=== PATIENT | male | born 1940 | race Asian ===

== ENCOUNTER 2024-09-03 15:58 | Inpatient (IN) | payer MEDICARE, OTHER ==
[~2024-09-03] VITALS: Ht 165.1 cm; Wt 39.9 kg
[2024-09-03] MEDS ORDERED: ATOR20TA PO (17:08)
[2024-09-03] MEDS ORDERED: CARV12.52 PO (17:08)
[2024-09-03] MEDS ORDERED: TAMS-3 PO (17:08)
[2024-09-03] MEDS ORDERED: ASPI81TA31 PO (17:08)
[2024-09-03] MEDS ORDERED: DIGO250T PO (17:08)
[2024-09-03] MEDS: CEFTRIAXONE 1 G in IV DEXTROSE 5% 50 ML IV ONE (17:15)
[2024-09-03 17:32] LABS: BASOPHILS % (AUTO) 0.3 % (0.0-2.0); EOSINOPHILS # (AUTO) 0.1 K/uL (0.0-0.7); EOSINOPHILS % (AUTO) 0.8 % (0.0-7.0); HEMATOCRIT 39.1 % (31.2-41.9); HEMOGLOBIN 13.1 g/dL (10.9-14.3); LYMPHOCYTES # (AUTO) 0.9 K/uL (0.8-4.8); LYMPHOCYTES % (AUTO) 7.4 % (20.5-51.5); MEAN CORPUSCULAR HEMOGLOBIN 30.7 uug (24.7-32.8); MEAN CORPUSCULAR HGB CONC 34 g/dL (32.3-35.6); MEAN CORPUSCULAR VOLUME 91.2 fL (75.5-95.3); MONOCYTES # (AUTO) 0.8 K/uL (0.1-1.30); NEUTROPHILS % (AUTO) 84.5 % (38.5-71.5); PLATELET COUNT (AUTO) 277 K/uL (179-408); RED BLOOD CELL COUNT(AUTO) 4.28 MIL/uL (3.63-4.92); RED CELL DISTRIBUTION WIDTH 13.5 % (12.3-17.7); WHITE BLOOD COUNT (AUTO) 11.8 K/uL (3.8-11.8)
[2024-09-03 17:41] LABS: CARBON DIOXIDE 32 mmol/L (21-32); CHLORIDE 91 mmol/L (98-107); CREATININE 0.6 mg/dL (0.6-1.3); GLUCOSE 113 mg/dL (74-106); POTASSIUM 3.8 mmol/L (3.5-5.1); SODIUM SERUM 129 mmol/L (136-145); UREA NITROGEN, BLOOD 11 mg/dL (7-18)
[2024-09-03 17:45] LABS: DIFFERENTIAL COMMENT 1
[2024-09-03 17:54] LABS: ALANINE AMINOTRANSFERASE 295 U/L (14-59); ALBUMIN 2.3 g/dL (3.4-5.0); ALKALINE PHOSPHATASE 215 U/L (50-136); ASPARTATE AMINOTRANSFERASE 171 U/L (15-37); BILIRUBIN,DIRECT 0.5 mg/dL (0.0-0.2); NT-PRO BNP 1754 pg/mL (0-125); TOTAL PROTEIN, SERUM 8.3 g/dL (6.4-8.2)
[2024-09-03 18:02] LABS: LACTIC ACID 2.1 mmol/L (0.4-2.0)
[2024-09-03] MEDS: IV NORMAL SALINE 1000 ML BAG IV ONE ×2 (18:04→20:20)
[2024-09-03] MEDS ORDERED: CEFTRIAXONE /D5W 50ML IVPB **ER PYXIS IV ONE (18:05)
[2024-09-03 18:20] LABS: *BILIRUBIN,URIN NEGATIVE (NEGATIVE); *BLOOD, URINE 2+ (NEGATIVE); *CLARITY,URINE CLEAR (CLEAR); *COLOR,URINE YELLOW (YELLOW); *KETONES,URINE NEGATIVE (NEGATIVE); LEUKOCYTE ESTERASE ,URINE 3+ (NEGATIVE); NITRITE, URINE POSITIVE (NEGATIVE); PH,URINE 7.5 (5.0-8.0); UGLUCOSE NEGATIVE (NEGATIVE)
[2024-09-03 18:26] LABS: *PROTEIN,URINE 3+ (NEGATIVE)
[2024-09-03 18:42] LABS: BACTERIA,URINE MANY /HPF (NONE SEEN); RBC,URINE 20-50 /HPF (0-3); SQUAMOUS EPITHELIAL CELL,UR FEW /HPF (NONE SEEN); WBC,URINE TNTC /HPF (0-3)
[2024-09-03] MEDS ORDERED: REMEDY ESSENTIAL ZINC PASTE 113 GM TP PRN (22:00)
[2024-09-03] MEDS ORDERED: ONDANSETRON 4 MG/2 ML VIAL IV PRN (22:00)
[2024-09-03] MEDS ORDERED: ACETAMINOPHEN 325 MG TABLET PO PRN (22:00)
[2024-09-03] MEDS ORDERED: MAGNESIUM HYDROXIDE 30 ML LIQUID UDC PO PRN (22:00)
[2024-09-04 01:29] VITALS: BP 113/64; TEMP 98; O2SAT 98
[2024-09-04] MEDS: IV NS 1000 ML 1,000 ML IV PRN (03:15)
[2024-09-04 05:17] VITALS: BP 124/62; TEMP 97.7; O2SAT 98
[2024-09-04 07:02] LABS: BASOPHILS % (AUTO) 0.3 % (0.0-2.0); EOSINOPHILS # (AUTO) 0.1 K/uL (0.0-0.7); EOSINOPHILS % (AUTO) 1.2 % (0.0-7.0); HEMATOCRIT 35.1 % (36.7-47.1); HEMOGLOBIN 12.1 g/dL (12.5-16.3); LYMPHOCYTES % (AUTO) 10.2 % (20.5-51.5); MEAN CORPUSCULAR HEMOGLOBIN 31.5 uug (23.8-33.4); MEAN CORPUSCULAR HGB CONC 34 g/dL (32.5-36.3); MEAN CORPUSCULAR VOLUME 91.6 fL (73.0-96.2); MONOCYTES # (AUTO) 0.7 K/uL (0.1-1.30); MONOCYTES % (AUTO) 7.4 % (0.0-11.0); NEUTROPHILS # (AUTO) 7.6 K/uL (1.8-8.9); NEUTROPHILS % (AUTO) 80.9 % (38.5-71.5); PLATELET COUNT (AUTO) 237 K/uL (152-348); RED BLOOD CELL COUNT(AUTO) 3.83 MIL/uL (4.06-5.63); WHITE BLOOD COUNT (AUTO) 9.5 K/uL (3.6-10.2)
[2024-09-04 07:12] LABS: DIFFERENTIAL COMMENT 1
[2024-09-04 07:22] LABS: ALANINE AMINOTRANSFERASE 221 U/L (16-63); ALBUMIN 1.9 g/dL (3.4-5.0); ALKALINE PHOSPHATASE 165 U/L (50-136); ASPARTATE AMINOTRANSFERASE 126 U/L (15-37); BILIRUBIN,TOTAL 0.9 mg/dL (0.2-1.0); CALCIUM 8.1 mg/dL (8.5-10.1); CARBON DIOXIDE 27 mmol/L (21-32); CHLORIDE 101 mmol/L (98-107); CREATININE 0.5 mg/dL (0.6-1.3); GLUCOSE 81 mg/dL (74-106); PHOSPHOROUS 2.5 mg/dL (2.5-4.9); POTASSIUM 3.4 mmol/L (3.5-5.1); SODIUM SERUM 136 mmol/L (136-145); TOTAL PROTEIN, SERUM 6.5 g/dL (6.4-8.2); UREA NITROGEN, BLOOD 7 mg/dL (7-18)
[2024-09-04 07:27] LABS: AMMONIA < 10 umol/L (11-32)
[2024-09-04 07:40] VITALS: BP 131/63; TEMP 98.2; O2SAT 97
[2024-09-04] MEDS ORDERED: DIGOXIN 250 MCG TABLET PO SCH (09:00)
[2024-09-04 10:53] VITALS: BP 128/59; TEMP 97.6; O2SAT 98
[2024-09-04] MEDS: TAMSULOSIN HCL 0.4 MG CAP.SR.24H PO SCH (10:53)
[2024-09-04] MEDS: DIGOXIN 250 MCG TABLET PO SCH (11:03)
[2024-09-04] MEDS: POTASSIUM CHLORIDE 50 ML IV SCH (11:03)
[2024-09-04 14:21] LABS: THYROID STIMULATING HORMONE 2.377 mIU/mL (0.358-3.740)
[2024-09-04 15:02] VITALS: BP 133/55; TEMP 97.6; O2SAT 96
[2024-09-04] MEDS ORDERED: SWABABLE VALVE TRANSFER SET EA MC ONE (15:58)
[2024-09-04] MEDS ORDERED: IOHEXOL 350 100 ML INFUS..BTL ONE (15:58)
[2024-09-04] MEDS ORDERED: IV NORMAL SALINE 250 ML IV ONE (15:58)
[2024-09-04] MEDS: ASPIRIN 81 MG TAB.CHEW PO SCH (16:49)
[2024-09-04] MEDS: CEFTRIAXONE 1 G in IV DEXTROSE 5% 50 ML IV SCH (17:13)
[2024-09-04 19:00] VITALS: BP 110/60; TEMP 99; O2SAT 96
[2024-09-05] VITALS: BP 130/63; TEMP 98.1; O2SAT 97
[2024-09-05 04:00] VITALS: BP 116/59; TEMP 97.5; O2SAT 94
[2024-09-05 06:54] LABS: BASOPHILS % (AUTO) 0.4 % (0.0-2.0); EOSINOPHILS # (AUTO) 0.1 K/uL (0.0-0.7); EOSINOPHILS % (AUTO) 1.6 % (0.0-7.0); HEMATOCRIT 34.3 % (36.7-47.1); HEMOGLOBIN 11.6 g/dL (12.5-16.3); LYMPHOCYTES % (AUTO) 12.9 % (20.5-51.5); MEAN CORPUSCULAR HEMOGLOBIN 30.9 uug (23.8-33.4); MEAN CORPUSCULAR HGB CONC 34 g/dL (32.5-36.3); MEAN CORPUSCULAR VOLUME 91.1 fL (73.0-96.2); MONOCYTES # (AUTO) 0.7 K/uL (0.1-1.30); MONOCYTES % (AUTO) 8.5 % (0.0-11.0); NEUTROPHILS # (AUTO) 6.1 K/uL (1.8-8.9); NEUTROPHILS % (AUTO) 76.6 % (38.5-71.5); PLATELET COUNT (AUTO) 271 K/uL (152-348); RED BLOOD CELL COUNT(AUTO) 3.76 MIL/uL (4.06-5.63); RED CELL DISTRIBUTION WIDTH 13.5 % (12.1-16.2); WHITE BLOOD COUNT (AUTO) 7.9 K/uL (3.6-10.2)
[2024-09-05 07:14] LABS: ALANINE AMINOTRANSFERASE 189 U/L (16-63); ALBUMIN 1.8 g/dL (3.4-5.0); ALKALINE PHOSPHATASE 141 U/L (50-136); ASPARTATE AMINOTRANSFERASE 104 U/L (15-37); BILIRUBIN,DIRECT 0.4 mg/dL (0.0-0.2); BILIRUBIN,TOTAL 0.7 mg/dL (0.2-1.0); CALCIUM 7.8 mg/dL (8.5-10.1); CARBON DIOXIDE 27 mmol/L (21-32); CHLORIDE 105 mmol/L (98-107); CREATINE KINASE, TOTAL 14 U/L (39-308); CREATININE 0.5 mg/dL (0.6-1.3); GLUCOSE 92 mg/dL (74-106); MAGNESIUM 1.9 mg/dL (1.8-2.4); PHOSPHOROUS 2.5 mg/dL (2.5-4.9); POTASSIUM 3.5 mmol/L (3.5-5.1); SODIUM SERUM 139 mmol/L (136-145); TOTAL PROTEIN, SERUM 6.2 g/dL (6.4-8.2); UREA NITROGEN, BLOOD 7 mg/dL (7-18)
[2024-09-05 07:25] LABS: DIFFERENTIAL COMMENT 1
[2024-09-05 07:38] VITALS: BP 121/76; TEMP 98.2; O2SAT 96
[2024-09-05] MEDS: TAMSULOSIN HCL 0.4 MG CAP.SR.24H PO SCH (08:09)
[2024-09-05 11:17] VITALS: BP 108/62; TEMP 98.4; O2SAT 98
[2024-09-06 04:07] LABS: HEPATITIS B SURFACE AB, QUAL Reactive (.); HEPATITIS B SURFACE AG Negative (Negative); HEPATITIS C VIRUS ANTIBODY Non Reactive (Non Reactive)
[2024-09-08] MEDS ORDERED: LEVO500T90 PO (22:25)
== END 2024-09-05 15:00 | disposition home health service (06) | DRG 64 ==
LOC: EDSEX 16:15 → ER 16:15 → TELE3 22:15
PROVIDERS: ADMIT Nurse Practitioner Acute Care; ATTEND Internal Medicine
PROC: 05HC33Z Insertion of Infusion Device into Left Basilic Vein, Percutaneous Approach (ICD-10-PCS; principal; 2024-09-04)
DX: I61.9 Nontraumatic intracerebral hemorrhage, unspecified (principal); G93.41 Metabolic encephalopathy; I50.32 Chronic diastolic (congestive) heart failure; I69.354 Hemiplegia and hemiparesis following cerebral infarction affecting left non-dominant side; N39.0 Urinary tract infection, site not specified; R13.10 Dysphagia, unspecified; I11.0 Hypertensive heart disease with heart failure; E78.5 Hyperlipidemia, unspecified; R74.01 Elevation of levels of liver transaminase levels; T44.6X5A Adverse effect of alpha-adrenoreceptor antagonists, initial encounter; Y92.009 Unspecified place in unspecified non-institutional (private) residence as the place of occurrence of the external cause; N40.1 Benign prostatic hyperplasia with lower urinary tract symptoms; R33.8 Other retention of urine; E86.0 Dehydration; Z66 Do not resuscitate
CPT/HCPCS: 36415; 70450; 70496; 71045; 80164; 83605; 83735; 83921; 84100; 84443; 84484; 85025; 85730; 86706; 86803; 87040; 87077; 87086; 87340; A4606; A4663; G0378; J0696; J3480; J7040; Q9967

== ENCOUNTER 2024-10-18 21:05 | Inpatient (IN) | payer MEDICARE, OTHER ==
[~2024-10-18] VITALS: Ht 165.1 cm; Wt 39.9 kg
[~2024-10-18 21:05] MED LIST: ASPI81TA31 PO; CARV12.52 PO; DIGO250T PO; LEVO500T90 PO; TAMS-3 PO
[2024-10-18] MEDS ORDERED: ONDANSETRON 4 MG/2 ML VIAL IV ONE (21:30)
[2024-10-18] MEDS ORDERED: MORPHINE SULFATE 2 MG/1 ML DISP.SYRIN IV ONE (21:30)
[2024-10-18 22:21] LABS: BASOPHILS % (AUTO) 0.4 % (0.0-2.0); DIFFERENTIAL COMMENT 0; EOSINOPHILS % (AUTO) 0.4 % (0.0-7.0); HEMATOCRIT 44.4 % (36.7-47.1); LYMPHOCYTES # (AUTO) 1.1 K/uL (0.8-4.8); LYMPHOCYTES % (AUTO) 9.8 % (20.5-51.5); MEAN CORPUSCULAR HEMOGLOBIN 31.7 uug (23.8-33.4); MEAN CORPUSCULAR HGB CONC 34 g/dL (32.5-36.3); MEAN CORPUSCULAR VOLUME 93.6 fL (73.0-96.2); MONOCYTES # (AUTO) 0.6 K/uL (0.1-1.30); MONOCYTES % (AUTO) 5.1 % (0.0-11.0); NEUTROPHILS # (AUTO) 9.3 K/uL (1.8-8.9); NEUTROPHILS % (AUTO) 84.3 % (38.5-71.5); PLATELET COUNT (AUTO) 172 K/uL (152-348); RED BLOOD CELL COUNT(AUTO) 4.74 MIL/uL (4.06-5.63); RED CELL DISTRIBUTION WIDTH 15.7 % (12.1-16.2)
[2024-10-18 22:28] LABS: CALCIUM 9.3 mg/dL (8.5-10.1); CARBON DIOXIDE 27 mmol/L (21-32); CHLORIDE 103 mmol/L (98-107); CREATININE 0.8 mg/dL (0.6-1.3); GLUCOSE 98 mg/dL (74-106); POTASSIUM 4.6 mmol/L (3.5-5.1); SODIUM SERUM 140 mmol/L (136-145); UREA NITROGEN, BLOOD 13 mg/dL (7-18)
[2024-10-18 22:35] LABS: ALANINE AMINOTRANSFERASE 298 U/L (16-63); ALBUMIN 3.7 g/dL (3.4-5.0); ALKALINE PHOSPHATASE 124 U/L (50-136); ASPARTATE AMINOTRANSFERASE 538 U/L (15-37); BILIRUBIN,DIRECT 1.3 mg/dL (0.0-0.2); BILIRUBIN,TOTAL 1.9 mg/dL (0.2-1.0)
[2024-10-18 22:37] LABS: LIPASE > 375 U/L (16-77)
[2024-10-18] MEDS: ONDANSETRON ODT 4 MG TAB.RAPDIS SL ONE (22:52)
[2024-10-18] MEDS: MORPHINE SULFATE 2 MG/1 ML DISP.SYRIN IM ONE (22:52)
[2024-10-18] MEDS ORDERED: ROSU5TAB PO (23:11)
[2024-10-18] MEDS ORDERED: CHOL2000 PO (23:11)
[2024-10-18] MEDS ORDERED: ALFU10TA10 PO (23:11)
[2024-10-18] MEDS ORDERED: DUTA0.5C37 PO (23:11)
[2024-10-18] MEDS ORDERED: CARV25TA2 PO (23:11)
[2024-10-19] MEDS: IV NORMAL SALINE 500 ML BAG IV ONE (01:03)
[2024-10-19] MEDS ORDERED: ONDANSETRON 4 MG/2 ML VIAL IV PRN (03:15)
[2024-10-19] MEDS ORDERED: ACETAMINOPHEN 650 MG SUPP.RECT RC PRN (03:15)
[2024-10-19] MEDS ORDERED: MAGNESIUM HYDROXIDE 30 ML LIQUID UDC PO PRN (03:15)
[2024-10-19] MEDS ORDERED: MORPHINE SULFATE 2 MG/1 ML DISP.SYRIN IV PRN (03:15)
[2024-10-19 04:50] VITALS: BP 119/54; TEMP 98.1; O2SAT 96
[2024-10-19] MEDS: IV LACTATED RINGERS SOLUTION 1,000 ML IV SCH (05:16)
[2024-10-19 06:49] LABS: BASOPHILS % (AUTO) 0.1 % (0.0-2.0); HEMATOCRIT 37.6 % (36.7-47.1); HEMOGLOBIN 12.9 g/dL (12.5-16.3); LYMPHOCYTES # (AUTO) 1.5 K/uL (0.8-4.8); LYMPHOCYTES % (AUTO) 12.6 % (20.5-51.5); MEAN CORPUSCULAR HEMOGLOBIN 31.4 uug (23.8-33.4); MEAN CORPUSCULAR HGB CONC 34 g/dL (32.5-36.3); MEAN CORPUSCULAR VOLUME 91.6 fL (73.0-96.2); MONOCYTES # (AUTO) 0.5 K/uL (0.1-1.30); MONOCYTES % (AUTO) 4.5 % (0.0-11.0); NEUTROPHILS # (AUTO) 9.8 K/uL (1.8-8.9); NEUTROPHILS % (AUTO) 82.8 % (38.5-71.5); PLATELET COUNT (AUTO) 156 K/uL (152-348); RED CELL DISTRIBUTION WIDTH 15.5 % (12.1-16.2); WHITE BLOOD COUNT (AUTO) 11.8 K/uL (3.6-10.2)
[2024-10-19 07:02] LABS: DIFFERENTIAL COMMENT 1
[2024-10-19 07:08] LABS: ALANINE AMINOTRANSFERASE 296 U/L (16-63); ALBUMIN 2.9 g/dL (3.4-5.0); ALKALINE PHOSPHATASE 90 U/L (50-136); ASPARTATE AMINOTRANSFERASE 290 U/L (15-37); BILIRUBIN,TOTAL 1.2 mg/dL (0.2-1.0); CALCIUM 8.7 mg/dL (8.5-10.1); CARBON DIOXIDE 28 mmol/L (21-32); CHLORIDE 106 mmol/L (98-107); CREATININE 0.8 mg/dL (0.6-1.3); GLUCOSE 130 mg/dL (74-106); MAGNESIUM 1.8 mg/dL (1.8-2.4); PHOSPHOROUS 3.3 mg/dL (2.5-4.9); POTASSIUM 4.4 mmol/L (3.5-5.1); SODIUM SERUM 141 mmol/L (136-145); TOTAL PROTEIN, SERUM 7.2 g/dL (6.4-8.2); UREA NITROGEN, BLOOD 16 mg/dL (7-18)
[2024-10-19 07:14] LABS: LIPASE > 375 U/L (16-77)
[2024-10-19] MEDS: PANTOPRAZOLE SODIUM 40 MG VIAL IV SCH (09:35)
[2024-10-19 10:29] LABS: *BILIRUBIN,URIN 1+ (NEGATIVE); *BLOOD, URINE NEGATIVE (NEGATIVE); *CLARITY,URINE CLEAR (CLEAR); *COLOR,URINE YELLOW (YELLOW); *KETONES,URINE TRACE (NEGATIVE); *PROTEIN,URINE NEGATIVE (NEGATIVE); LEUKOCYTE ESTERASE ,URINE NEGATIVE (NEGATIVE); NITRITE, URINE NEGATIVE (NEGATIVE); PH,URINE 5.5 (5.0-8.0); UGLUCOSE NEGATIVE (NEGATIVE)
[2024-10-19 10:50] LABS: BACTERIA,URINE FEW /HPF (NONE SEEN); SQUAMOUS EPITHELIAL CELL,UR FEW /HPF (NONE SEEN); WBC,URINE 0-3 /HPF (0-3)
[2024-10-19] MEDS ORDERED: Medication Not On Formulary EA (Cholecalciferol (Vitamin D3) (Vitamin D3) 1 CAP) PO SCH (11:30)
[2024-10-19 11:34] VITALS: BP 113/73; TEMP 98.4; O2SAT 94
[2024-10-19] MEDS: DUTASTERIDE 0.5 MG CAPSULE PO SCH (11:55)
[2024-10-19] MEDS: DIGOXIN 250 MCG TABLET PO SCH (11:55)
[2024-10-19] MEDS: CARVEDILOL 25 MG TABLET PO SCH (13:27)
[2024-10-19 15:59] VITALS: BP 117/51; TEMP 98; O2SAT 100
[2024-10-19] MEDS: ALFUZOSIN HCL 10 MG TAB.SR.24H PO SCH (17:39)
[2024-10-19 19:10] VITALS: BP 106/47; TEMP 98.6; O2SAT 92
[2024-10-20 06:54] VITALS: BP 117/45; TEMP 98.1; O2SAT 90
[2024-10-20] MEDS: CHOLECALCIFEROL 1,000 UNIT TABLET PO SCH (09:08)
[2024-10-20] MEDS: ASPIRIN 81 MG TAB.CHEW PO SCH (09:12)
[2024-10-20 09:13] LABS: ALBUMIN 2.3 g/dL (3.4-5.0); BILIRUBIN,DIRECT 0.5 mg/dL (0.0-0.2); BILIRUBIN,TOTAL 1.5 mg/dL (0.2-1.0); TOTAL PROTEIN, SERUM 6.2 g/dL (6.4-8.2)
[2024-10-20 11:37] VITALS: BP 115/58; TEMP 98.3; O2SAT 99
[2024-10-20 15:52] VITALS: BP 98/43; TEMP 98.5; O2SAT 98
[2024-10-20 21:18] VITALS: BP 117/48; TEMP 98.7; O2SAT 98
[2024-10-21] MEDS: PANTOPRAZOLE ORAL SUSPENSION 40 MG SUSPDR.PKT PO SCH (06:42)
[2024-10-21 07:12] VITALS: BP 135/65; TEMP 97.4; O2SAT 94
[2024-10-21 11:11] VITALS: BP 120/52; TEMP 97.6; O2SAT 98
[2024-10-21 11:54] LABS: BASOPHILS % (AUTO) 0.1 % (0.0-2.0); EOSINOPHILS # (AUTO) 0.1 K/uL (0.0-0.7); EOSINOPHILS % (AUTO) 0.9 % (0.0-7.0); HEMATOCRIT 33.5 % (36.7-47.1); HEMOGLOBIN 11.5 g/dL (12.5-16.3); LYMPHOCYTES # (AUTO) 1.4 K/uL (0.8-4.8); LYMPHOCYTES % (AUTO) 15.6 % (20.5-51.5); MEAN CORPUSCULAR HEMOGLOBIN 31.7 uug (23.8-33.4); MEAN CORPUSCULAR HGB CONC 34 g/dL (32.5-36.3); MEAN CORPUSCULAR VOLUME 92.7 fL (73.0-96.2); MONOCYTES # (AUTO) 0.6 K/uL (0.1-1.30); MONOCYTES % (AUTO) 6.8 % (0.0-11.0); NEUTROPHILS # (AUTO) 6.9 K/uL (1.8-8.9); NEUTROPHILS % (AUTO) 76.6 % (38.5-71.5); PLATELET COUNT (AUTO) 126 K/uL (152-348); RED BLOOD CELL COUNT(AUTO) 3.61 MIL/uL (4.06-5.63); RED CELL DISTRIBUTION WIDTH 15.2 % (12.1-16.2)
[2024-10-21 12:03] LABS: DIFFERENTIAL COMMENT 1
[2024-10-21 15:04] VITALS: BP 121/57; TEMP 97.6; O2SAT 96
[2024-10-21] MEDS: MIRALAX 17 GM POWD.PACK PO SCH (18:32)
[2024-10-21 20:00] VITALS: BP 119/75; TEMP 98.7; O2SAT 95
[2024-10-22 04:00] VITALS: BP 151/62; TEMP 98.9; O2SAT 95
[2024-10-22 06:59] LABS: BASOPHILS % (AUTO) 0.4 % (0.0-2.0); EOSINOPHILS # (AUTO) 0.1 K/uL (0.0-0.7); EOSINOPHILS % (AUTO) 1.4 % (0.0-7.0); HEMATOCRIT 35.2 % (36.7-47.1); HEMOGLOBIN 12.2 g/dL (12.5-16.3); LYMPHOCYTES # (AUTO) 1.3 K/uL (0.8-4.8); LYMPHOCYTES % (AUTO) 19.1 % (20.5-51.5); MEAN CORPUSCULAR HEMOGLOBIN 32.1 uug (23.8-33.4); MEAN CORPUSCULAR HGB CONC 35 g/dL (32.5-36.3); MEAN CORPUSCULAR VOLUME 92.4 fL (73.0-96.2); MONOCYTES # (AUTO) 0.5 K/uL (0.1-1.30); NEUTROPHILS # (AUTO) 4.8 K/uL (1.8-8.9); NEUTROPHILS % (AUTO) 72.1 % (38.5-71.5); PLATELET COUNT (AUTO) 145 K/uL (152-348); RED BLOOD CELL COUNT(AUTO) 3.81 MIL/uL (4.06-5.63); RED CELL DISTRIBUTION WIDTH 15.3 % (12.1-16.2); WHITE BLOOD COUNT (AUTO) 6.6 K/uL (3.6-10.2)
[2024-10-22 07:24] LABS: DIFFERENTIAL COMMENT 1
[2024-10-22 07:26] LABS: ALANINE AMINOTRANSFERASE 81 U/L (16-63); ALBUMIN 2.3 g/dL (3.4-5.0); ALKALINE PHOSPHATASE 72 U/L (50-136); ASPARTATE AMINOTRANSFERASE 43 U/L (15-37); BILIRUBIN,TOTAL 1.7 mg/dL (0.2-1.0); CALCIUM 8.4 mg/dL (8.5-10.1); CARBON DIOXIDE 27 mmol/L (21-32); CHLORIDE 103 mmol/L (98-107); CREATININE 0.5 mg/dL (0.6-1.3); GLUCOSE 103 mg/dL (74-106); POTASSIUM 3.1 mmol/L (3.5-5.1); SODIUM SERUM 139 mmol/L (136-145); TOTAL PROTEIN, SERUM 6.8 g/dL (6.4-8.2); UREA NITROGEN, BLOOD 5 mg/dL (7-18)
[2024-10-22 07:40] LABS: LIPASE 62 U/L (16-77)
[2024-10-22] MEDS ORDERED: POTASSIUM CHLORIDE 20 MEQ POWDER PACKET GT SCH (09:00)
[2024-10-22] MEDS ORDERED: PANTOPRAZOLE SODIUM 40 MG VIAL IV SCH (09:00)
[2024-10-22] MEDS: PANTOPRAZOLE ORAL SUSPENSION 40 MG SUSPDR.PKT PO SCH (09:22)
[2024-10-22] MEDS ORDERED: LACTULOSE 20 G/30 ML LIQUID UDC PO PRN (10:30)
[2024-10-22] MEDS ORDERED: FLEET ENEMA 133 ML BOTTLE RC PRN (10:45)
[2024-10-22] MEDS: BISACODYL 10 MG SUPP.RECT RC ONE (11:05)
[2024-10-22 11:16] VITALS: BP 148/75; TEMP 98.2; O2SAT 96
[2024-10-22] MEDS: POTASSIUM CHLORIDE 50 ML IV SCH (11:36)
[2024-10-22 15:05] VITALS: BP 158/64; TEMP 98.4; O2SAT 97
[2024-10-22] MEDS: IV LACTATED RINGERS SOLUTION 1,000 ML IV PRN (17:07)
[2024-10-22 17:30] VITALS: BP 133/55; TEMP 98.4; O2SAT 97
[2024-10-22] MEDS ORDERED: IPRATROPIUM BROMIDE 0.5 MG/2.5 ML NEBU NEB PRN (17:45)
[2024-10-22] MEDS ORDERED: ALBUTEROL SULFATE 1.25 MG/3 ML NEBU NEB PRN (17:45)
[2024-10-22 19:47] VITALS: BP_SYST 126; BP_SYST 127; BP_DIAS 53; BP_DIAS 98; TEMP 98.3; O2SAT 93; O2SAT 97
[2024-10-23 05:16] VITALS: BP 96/50; TEMP 97.9; O2SAT 92
[2024-10-23 07:43] LABS: CALCIUM 8.7 mg/dL (8.5-10.1); CARBON DIOXIDE 29 mmol/L (21-32); CHLORIDE 102 mmol/L (98-107); CREATININE 0.6 mg/dL (0.6-1.3); GLUCOSE 103 mg/dL (74-106); POTASSIUM 3.2 mmol/L (3.5-5.1); SODIUM SERUM 138 mmol/L (136-145); UREA NITROGEN, BLOOD 8 mg/dL (7-18)
[2024-10-23] MEDS: POTASSIUM CHLORIDE 20 MEQ POWDER PACKET PO ONE (09:34)
[2024-10-23 10:51] VITALS: BP 108/47; TEMP 97.8; O2SAT 98
[2024-10-23 11:50] VITALS: BP 108/47
[2024-10-23] MEDS ORDERED: CHOL100062 PO (13:52)
[2024-10-23] MEDS ORDERED: AMOX1TAB16 PO (13:52)
[2024-10-23] MEDS ORDERED: PANT40SU2 PO (13:52)
[2024-10-23] MEDS ORDERED: POLY17PO4 PO (13:52)
[2024-10-23] MEDS ORDERED: AMOXICILLIN-CLAVUL 875-125MG TABLET PO SCH (21:00)
== END 2024-10-23 15:10 | disposition home health service (06) | DRG 439 ==
LOC: ER 21:10 → MEDSURG3 23:04
PROVIDERS: ATTEND Internal Medicine
PROC: 05HA33Z Insertion of Infusion Device into Left Brachial Vein, Percutaneous Approach (ICD-10-PCS; principal; 2024-10-19)
PROC: 05HB33Z Insertion of Infusion Device into Right Basilic Vein, Percutaneous Approach (ICD-10-PCS; 2024-10-22)
DX: K85.90 Acute pancreatitis without necrosis or infection, unspecified (principal); E44.0 Moderate protein-calorie malnutrition; G93.49 Other encephalopathy; I69.154 Hemiplegia and hemiparesis following nontraumatic intracerebral hemorrhage affecting left non-dominant side; I50.32 Chronic diastolic (congestive) heart failure; I69.198 Other sequelae of nontraumatic intracerebral hemorrhage; Z79.82 Long term (current) use of aspirin; Z79.899 Other long term (current) drug therapy; R13.10 Dysphagia, unspecified; Z66 Do not resuscitate; N40.0 Benign prostatic hyperplasia without lower urinary tract symptoms; E78.5 Hyperlipidemia, unspecified; R74.01 Elevation of levels of liver transaminase levels; K59.00 Constipation, unspecified; E88.09 Other disorders of plasma-protein metabolism, not elsewhere classified; I70.8 Atherosclerosis of other arteries; R79.89 Other specified abnormal findings of blood chemistry
CPT/HCPCS: 36415; 71045; 76705; 83690; 83735; 84100; 85025; 85730; 87086; A4606; A4663; G0378; J2270; J2470; J3480; J7040; J7120; J8499; Q0162

== ENCOUNTER 2025-01-16 19:35 | Inpatient (IN) | payer MEDICARE, OTHER ==
[~2025-01-16] VITALS: Ht 170.2 cm; Wt 63.2 kg
[~2025-01-16 19:35] MED LIST changes: +ALFU10TA10 PO; +AMOX1TAB16 PO; -CARV12.52 PO; +CARV25TA2 PO; +CHOL100062 PO; +CHOL2000 PO; +DUTA0.5C37 PO; -LEVO500T90 PO; +PANT40SU2 PO; +POLY17PO4 PO; +ROSU5TAB PO; -TAMS-3 PO
[2025-01-16 21:06] LABS: PLATELET COUNT (AUTO) 160 K/uL (152-348); RED BLOOD CELL COUNT(AUTO) 4.87 MIL/uL (4.06-5.63); RED CELL DISTRIBUTION WIDTH 14.0 % (12.1-16.2); WHITE BLOOD COUNT (AUTO) 10.2 K/uL (3.6-10.2)
[2025-01-16 21:13] LABS: CREATININE 0.8 mg/dL (0.6-1.3); SODIUM SERUM 139 mmol/L (136-145); UREA NITROGEN, BLOOD 21 mg/dL (7-18)
[2025-01-16] MEDS: IV NS 1000 ML 1,000 ML IV ONE (21:15)
[2025-01-16 21:19] LABS: ASPARTATE AMINOTRANSFERASE 27 U/L (15-37); TOTAL PROTEIN, SERUM 8.5 g/dL (6.4-8.2)
[2025-01-16 23:04] LABS: *BLOOD, URINE NEGATIVE (NEGATIVE); *CLARITY,URINE CLEAR (CLEAR); *COLOR,URINE YELLOW (YELLOW); *KETONES,URINE 2+ (NEGATIVE); *PROTEIN,URINE 1+ (NEGATIVE); *UROBILINOGEN,URINE 1.0 E.U./dl (NORMAL); LEUKOCYTE ESTERASE ,URINE NEGATIVE (NEGATIVE); NITRITE, URINE NEGATIVE (NEGATIVE); UGLUCOSE NEGATIVE (NEGATIVE)
[2025-01-16 23:10] LABS: *BILIRUBIN,URIN 1+ (NEGATIVE)
[2025-01-16 23:25] LABS: SQUAMOUS EPITHELIAL CELL,UR FEW /HPF (NONE SEEN)
[2025-01-17] MEDS ORDERED: CEFTRIAXONE /D5W 50ML IVPB **ER PYXIS IV ONE (00:38)
[2025-01-17] MEDS: CEFTRIAXONE 1 G in IV DEXTROSE 5% 50 ML IV ONE (00:42)
[2025-01-17] MEDS ORDERED: ACETAMINOPHEN 325 MG TABLET PO PRN (00:45)
[2025-01-17] MEDS ORDERED: MAGNESIUM HYDROXIDE 30 ML LIQUID UDC PO PRN (00:45)
[2025-01-17] MEDS: IV D5/ 0.9% NACL 1,000 ML IV SCH (02:54)
[2025-01-17 04:31] VITALS: BP 107/63; TEMP 97.7; O2SAT 95
[2025-01-17 06:37] LABS: PLATELET COUNT (AUTO) 125 K/uL (152-348); RED BLOOD CELL COUNT(AUTO) 4.58 MIL/uL (4.06-5.63); RED CELL DISTRIBUTION WIDTH 14.0 % (12.1-16.2); WHITE BLOOD COUNT (AUTO) 8.4 K/uL (3.6-10.2)
[2025-01-17 06:58] LABS: CREATININE 0.9 mg/dL (0.6-1.3); SODIUM SERUM 140 mmol/L (136-145); UREA NITROGEN, BLOOD 22 mg/dL (7-18)
[2025-01-17 07:32] VITALS: BP 146/71; TEMP 98.4; O2SAT 96
[2025-01-17] MEDS ORDERED: LOSA25TA27 PO (09:05)
[2025-01-17] MEDS: PANTOPRAZOLE SODIUM 40 MG VIAL IV SCH (09:07)
[2025-01-17 11:14] VITALS: BP 146/71; TEMP 98.6; O2SAT 96
[2025-01-17 11:20] VITALS: BP 140/67; TEMP 98.2; O2SAT 96
[2025-01-17] MEDS ORDERED: ACETAMINOPHEN 650 MG SUPP.RECT RC PRN (11:30)
[2025-01-17] MEDS ORDERED: DIATR MEGLU/DIATRIZOATE SODIUM 30 ML BOTTLE ONE (12:56)
[2025-01-17] MEDS ORDERED: PIPERACILLIN SODIUM/TAZOBACTAM 3.375 G in IV DEXTROSE 5% 50 ML IV SCH (14:00)
[2025-01-17] MEDS: PIPERACILLIN SODIUM/TAZOBACTAM 3.375 G in IV DEXTROSE 5% 100 ML IV SCH (14:13)
[2025-01-17 15:43] VITALS: BP 123/89; TEMP 98.2; O2SAT 96
[2025-01-17] MEDS: ONDANSETRON 4 MG/2 ML VIAL IV PRN (20:00)
[2025-01-17] MEDS ORDERED: CEFTRIAXONE 1 G in IV DEXTROSE 5% 50 ML IV SCH (21:00)
[2025-01-17 21:28] VITALS: BP 117/50; TEMP 98.1; O2SAT 92
[2025-01-18 06:45] LABS: PLATELET COUNT (AUTO) 141 K/uL (152-348); RED BLOOD CELL COUNT(AUTO) 4.22 MIL/uL (4.06-5.63); RED CELL DISTRIBUTION WIDTH 14.2 % (12.1-16.2); WHITE BLOOD COUNT (AUTO) 9.8 K/uL (3.6-10.2)
[2025-01-18 07:17] LABS: ASPARTATE AMINOTRANSFERASE 17 U/L (15-37); CREATININE 0.7 mg/dL (0.6-1.3); SODIUM SERUM 143 mmol/L (136-145); TOTAL PROTEIN, SERUM 6.8 g/dL (6.4-8.2); UREA NITROGEN, BLOOD 13 mg/dL (7-18)
[2025-01-18] MEDS: POTASSIUM CHLORIDE 50 ML IV SCH (09:31)
[2025-01-18] MEDS ORDERED: DIATR MEGLU/DIATRIZOATE SODIUM 120 ML BOTTLE ONE (09:45)
[2025-01-18 12:00] VITALS: BP 130/65; TEMP 97.7; O2SAT 100
[2025-01-18 16:00] VITALS: BP 150/56; TEMP 97.9; O2SAT 100
[2025-01-18 16:23] VITALS: O2SAT 99
[2025-01-18 19:15] VITALS: BP 115/66; TEMP 98.2; O2SAT 100
[2025-01-19 05:00] VITALS: BP 102/50; TEMP 97.7; O2SAT 96
[2025-01-19 05:27] VITALS: O2SAT 99
[2025-01-19 07:07] LABS: PLATELET COUNT (AUTO) 118 K/uL (152-348); RED BLOOD CELL COUNT(AUTO) 3.87 MIL/uL (4.06-5.63); RED CELL DISTRIBUTION WIDTH 14.0 % (12.1-16.2); WHITE BLOOD COUNT (AUTO) 8.2 K/uL (3.6-10.2)
[2025-01-19 07:36] LABS: CREATININE 0.7 mg/dL (0.6-1.3); UREA NITROGEN, BLOOD 11 mg/dL (7-18)
[2025-01-19 07:50] LABS: SODIUM SERUM 145 mmol/L (136-145)
[2025-01-19] MEDS: POTASSIUM CHLORIDE 50 ML IV SCH (09:11)
[2025-01-19 11:32] VITALS: BP 134/52; TEMP 97.6; O2SAT 100
[2025-01-19 16:00] VITALS: BP 128/69; TEMP 98.5; O2SAT 98
[2025-01-19 18:14] VITALS: O2SAT 99
[2025-01-19 19:25] VITALS: BP 129/61; TEMP 98.7; O2SAT 100
[2025-01-20 02:14] VITALS: O2SAT 99
[2025-01-20 04:02] VITALS: BP 107/74; TEMP 99; O2SAT 97
[2025-01-20 06:51] LABS: PLATELET COUNT (AUTO) 129 K/uL (152-348); RED BLOOD CELL COUNT(AUTO) 3.84 MIL/uL (4.06-5.63); RED CELL DISTRIBUTION WIDTH 14.2 % (12.1-16.2); WHITE BLOOD COUNT (AUTO) 7.3 K/uL (3.6-10.2)
[2025-01-20 07:09] LABS: CREATININE 0.5 mg/dL (0.6-1.3); SODIUM SERUM 145 mmol/L (136-145); UREA NITROGEN, BLOOD 9 mg/dL (7-18)
[2025-01-20] MEDS: POTASSIUM CHLORIDE 50 ML IV SCH (09:45)
[2025-01-20 11:34] VITALS: BP 167/72; TEMP 98.1; O2SAT 95
[2025-01-20] MEDS: SODIUM PHOSPHATE MM 15 MMOL in IV NORMAL SALINE 250 ML IV ONE (12:33)
[2025-01-20 15:34] VITALS: BP 156/73; TEMP 97.6; O2SAT 96
[2025-01-20] MEDS: CARVEDILOL 25 MG TABLET PO SCH (17:36)
[2025-01-20] MEDS: ALFUZOSIN HCL 10 MG TAB.SR.24H PO SCH (17:37)
[2025-01-20 20:08] VITALS: BP 158/84; TEMP 98.8; O2SAT 100
[2025-01-20] MEDS: ATORVASTATIN 10 MG TABLET PO SCH (21:00)
[2025-01-21 04:27] VITALS: O2SAT 99
[2025-01-21 06:00] VITALS: BP 116/78; TEMP 97.3; O2SAT 100
[2025-01-21] MEDS: DIGOXIN 250 MCG TABLET PO SCH (06:12)
[2025-01-21 06:51] LABS: PLATELET COUNT (AUTO) 142 K/uL (152-348); RED BLOOD CELL COUNT(AUTO) 3.84 MIL/uL (4.06-5.63); RED CELL DISTRIBUTION WIDTH 13.7 % (12.1-16.2); WHITE BLOOD COUNT (AUTO) 6.1 K/uL (3.6-10.2)
[2025-01-21 07:08] LABS: CREATININE 0.3 mg/dL (0.6-1.3); SODIUM SERUM 142 mmol/L (136-145); UREA NITROGEN, BLOOD 7 mg/dL (7-18)
[2025-01-21] MEDS: DUTASTERIDE 0.5 MG CAPSULE PO SCH (08:58)
[2025-01-21] MEDS: CHOLECALCIFEROL 1,000 UNIT TABLET PO SCH (08:59)
[2025-01-21] MEDS: LOSARTAN POTASSIUM 25 MG TABLET PO SCH (08:59)
[2025-01-21] MEDS: POTASSIUM CHLORIDE 20 MEQ POWDER PACKET PO ONE (10:31)
[2025-01-21 11:39] VITALS: BP 143/68; TEMP 98.2; O2SAT 100
[2025-01-21 15:40] VITALS: BP 122/56; TEMP 98.1; O2SAT 97
[2025-01-21 16:04] VITALS: O2SAT 97
[2025-01-21 19:20] VITALS: BP 124/69; TEMP 97.9; O2SAT 94
[2025-01-21] MEDS ORDERED: POTASSIUM CHLORIDE 10 MEQ, LIDOCAINE-MPF 1% 1 ML in IV DEXTROSE 5% 100 ML IV SCH (20:45)
[2025-01-21] MEDS ORDERED: POTASSIUM CHLORIDE 50 ML ONE ×4 (21:04→21:06)
[2025-01-21] MEDS ORDERED: LIDOCAINE HCL 1% 20 ML VIAL ONE (21:06)
[2025-01-21] MEDS: POTASSIUM CHLORIDE 50 ML IV SCH (22:06)
[2025-01-22 05:38] VITALS: O2SAT 97
[2025-01-22 06:39] VITALS: BP 125/68; TEMP 97.5; O2SAT 99
[2025-01-22 06:55] LABS: PLATELET COUNT (AUTO) 167 K/uL (152-348); RED BLOOD CELL COUNT(AUTO) 3.78 MIL/uL (4.06-5.63); RED CELL DISTRIBUTION WIDTH 13.8 % (12.1-16.2); WHITE BLOOD COUNT (AUTO) 6.6 K/uL (3.6-10.2)
[2025-01-22 07:06] LABS: CREATININE 0.5 mg/dL (0.6-1.3); SODIUM SERUM 139 mmol/L (136-145); UREA NITROGEN, BLOOD 7 mg/dL (7-18)
[2025-01-22] MEDS: MAGNESIUM OXIDE 400 MG TABLET PO ONE (10:14)
[2025-01-22] MEDS: POTASSIUM CHLORIDE 10 MEQ, LIDOCAINE-MPF 1% 1 ML in IV DEXTROSE 5% 100 ML IV SCH (10:16)
[2025-01-22 12:00] VITALS: BP 129/73; TEMP 97.8; O2SAT 99
[2025-01-22 16:00] VITALS: BP 115/55; TEMP 98.5; O2SAT 99
[2025-01-22 16:18] VITALS: O2SAT 99
[2025-01-22 19:50] VITALS: BP 140/73; TEMP 98.7; O2SAT 98
[2025-01-23 04:56] VITALS: BP 115/56; TEMP 98.4; O2SAT 98
[2025-01-23] MEDS: PANTOPRAZOLE SODIUM 40 MG TABLET.DR PO SCH (06:07)
[2025-01-23 06:47] LABS: PLATELET COUNT (AUTO) 176 K/uL (152-348); RED BLOOD CELL COUNT(AUTO) 3.88 MIL/uL (4.06-5.63); RED CELL DISTRIBUTION WIDTH 13.8 % (12.1-16.2); WHITE BLOOD COUNT (AUTO) 6.2 K/uL (3.6-10.2)
[2025-01-23 06:59] LABS: CREATININE 0.5 mg/dL (0.6-1.3); SODIUM SERUM 138 mmol/L (136-145); UREA NITROGEN, BLOOD 5 mg/dL (7-18)
[2025-01-23 10:57] VITALS: BP 136/55; TEMP 98.6; O2SAT 97
[2025-01-23] MEDS: POTASSIUM CHLORIDE 50 ML IV SCH (11:13)
[2025-01-23 15:28] VITALS: BP 136/66; TEMP 98.7; O2SAT 99
[2025-01-23 17:22] VITALS: BP 156/76; TEMP 98.7; O2SAT 100
[2025-01-23 19:00] VITALS: BP 150/63; TEMP 98.1; O2SAT 97
[2025-01-23] MEDS ORDERED: FENTANYL CITRATE 250 MCG/5 ML AMPUL ONE (22:13)
[2025-01-23] MEDS ORDERED: ROCURONIUM BROMIDE 50 MG/5 ML VIAL ONE ×2 (22:13→22:14)
[2025-01-23] MEDS ORDERED: SUCCINYLCHOLINE CHLORIDE 200 MG/10 ML VIAL ONE (22:14)
[2025-01-23] MEDS ORDERED: PROPOFOL 200 MG/20 ML BOTTLE ONE (23:00)
[2025-01-24] VITALS (7 sets, daily range): BP systolic 96–124; BP diastolic 53–62; TEMP 96.2–98.4; O2SAT 95–99
[2025-01-24] MEDS ORDERED: FENTANYL CITRATE 100 MCG/2 ML AMPUL ONE (02:17)
[2025-01-24] MEDS: FENTANYL CITRATE 100 MCG/2 ML AMPUL IV PRN (02:21)
[2025-01-24 07:16] LABS: PLATELET COUNT (AUTO) 188 K/uL (152-348); RED BLOOD CELL COUNT(AUTO) 4.26 MIL/uL (4.06-5.63); RED CELL DISTRIBUTION WIDTH 13.9 % (12.1-16.2); WHITE BLOOD COUNT (AUTO) 11.1 K/uL (3.6-10.2)
[2025-01-24 07:39] LABS: CREATININE 0.4 mg/dL (0.6-1.3); SODIUM SERUM 139 mmol/L (136-145); UREA NITROGEN, BLOOD 5 mg/dL (7-18)
[2025-01-24] MEDS ORDERED: MAGNESIUM SULFATE/D5W 100 ML IV SCH (10:45)
[2025-01-24] MEDS: MAGNESIUM SULFATE/D5W 100 ML IV SCH (11:22)
[2025-01-24] MEDS: POTASSIUM CHLORIDE 50 ML IV SCH (12:31)
[2025-01-25] VITALS (7 sets, daily range): BP systolic 114–148; BP diastolic 57–91; TEMP 97.5–98.4; O2SAT 96–99
[2025-01-25 07:18] LABS: PLATELET COUNT (AUTO) 178 K/uL (152-348); RED BLOOD CELL COUNT(AUTO) 3.73 MIL/uL (4.06-5.63); RED CELL DISTRIBUTION WIDTH 13.8 % (12.1-16.2); WHITE BLOOD COUNT (AUTO) 9.0 K/uL (3.6-10.2)
[2025-01-25 07:44] LABS: CREATININE 0.5 mg/dL (0.6-1.3); SODIUM SERUM 139 mmol/L (136-145); UREA NITROGEN, BLOOD 6 mg/dL (7-18)
[2025-01-25] MEDS: REMEDY ESSENTIAL ZINC PASTE 113 GM TOP SCH (10:48)
[2025-01-25] MEDS ORDERED: POTASSIUM CHLORIDE 50 ML IV SCH (11:30)
[2025-01-25] MEDS ORDERED: TPN/PPN PER PHARMACY IV PRN (12:30)
[2025-01-25] MEDS: POTASSIUM CHLORIDE 10 MEQ in IV D5/ 0.9% NACL 1,000 ML IV PRN (13:53)
[2025-01-25] MEDS: POTASSIUM CHLORIDE 10 MEQ, LIDOCAINE-MPF 1% 1 ML in IV DEXTROSE 5% 100 ML IV SCH (13:56)
[2025-01-26 05:38] VITALS: BP 156/77; TEMP 99
[2025-01-26 06:58] LABS: PLATELET COUNT (AUTO) 182 K/uL (152-348); RED BLOOD CELL COUNT(AUTO) 3.66 MIL/uL (4.06-5.63); RED CELL DISTRIBUTION WIDTH 14.0 % (12.1-16.2); WHITE BLOOD COUNT (AUTO) 7.2 K/uL (3.6-10.2)
[2025-01-26 07:12] LABS: CREATININE 0.4 mg/dL (0.6-1.3); SODIUM SERUM 140 mmol/L (136-145); UREA NITROGEN, BLOOD 4 mg/dL (7-18)
[2025-01-26] MEDS ORDERED: POTASSIUM CHLORIDE 50 ML IV SCH (07:45)
[2025-01-26] MEDS: POTASSIUM CHLORIDE 10 MEQ, LIDOCAINE-MPF 1% 1 ML in IV DEXTROSE 5% 100 ML IV SCH (09:20)
[2025-01-26 10:57] VITALS: BP 130/72; TEMP 98.2; O2SAT 93
[2025-01-26] MEDS ORDERED: DEXTROSE 50% 50 ML DISP.SYRIN IV PRN (12:00)
[2025-01-26] MEDS: TPN BAG #1 IV SCH (12:13)
[2025-01-26] MEDS: IV FAT EMULSIONS 20% 250 ML IV SCH (12:15)
[2025-01-26] MEDS: INSULIN REGULAR, HUMAN 1000 UNIT/10 ML VIAL SQ PRN (12:58)
[2025-01-26] MEDS: BLOOD SUGAR DIAGNOSTIC 1 EACH STRIP VI SCH (12:59)
[2025-01-26 14:25] VITALS: O2SAT 96
[2025-01-26 15:33] VITALS: BP 149/71; TEMP 98.4; O2SAT 100
[2025-01-26 22:59] VITALS: BP 156/73; TEMP 97.8
[2025-01-27] VITALS (12 sets, daily range): BP systolic 109–150; BP diastolic 53–79; TEMP 97.5–98.7; O2SAT 95–100
[2025-01-27] MEDS: TPN BAG #2 IV SCH (04:36)
[2025-01-27 07:12] LABS: PLATELET COUNT (AUTO) 212 K/uL (152-348); RED BLOOD CELL COUNT(AUTO) 3.60 MIL/uL (4.06-5.63); RED CELL DISTRIBUTION WIDTH 13.7 % (12.1-16.2); WHITE BLOOD COUNT (AUTO) 7.8 K/uL (3.6-10.2)
[2025-01-27 08:14] LABS: CREATININE 0.3 mg/dL (0.6-1.3); SODIUM SERUM 138 mmol/L (136-145); UREA NITROGEN, BLOOD 7 mg/dL (7-18)
[2025-01-27] MEDS ORDERED: POTASSIUM CHLORIDE 50 ML IV SCH (09:15)
[2025-01-27] MEDS: POTASSIUM CHLORIDE 10 MEQ, LIDOCAINE-MPF 1% 1 ML in IV DEXTROSE 5% 100 ML IV SCH (09:47)
[2025-01-27] MEDS ORDERED: ALBUTEROL SULFATE 2.5 MG/ 0.5 ML NEBU NEB SCH (14:00)
[2025-01-27] MEDS: ALBUTEROL SULFATE 1.25 MG/3 ML NEBU NEB PRN (14:10)
[2025-01-27] MEDS: IPRATROPIUM BROMIDE 0.5 MG/2.5 ML NEBU NEB PRN (14:10)
[2025-01-27] MEDS: ACETYLCYSTEINE 10% 4ML VIAL NEB SCH (14:10)
[2025-01-27] MEDS: TPN BAG #3 IV SCH (14:46)
[2025-01-28] VITALS (13 sets, daily range): BP systolic 103–129; BP diastolic 52–79; TEMP 97.9–98.4; O2SAT 97–100
[2025-01-28] MEDS: TPN BAG #4 IV SCH (03:59)
[2025-01-28 07:09] LABS: PLATELET COUNT (AUTO) 200 K/uL (152-348); RED BLOOD CELL COUNT(AUTO) 3.30 MIL/uL (4.06-5.63); RED CELL DISTRIBUTION WIDTH 13.8 % (12.1-16.2); WHITE BLOOD COUNT (AUTO) 7.4 K/uL (3.6-10.2)
[2025-01-28 07:37] LABS: CREATININE 0.3 mg/dL (0.6-1.3); SODIUM SERUM 140 mmol/L (136-145); UREA NITROGEN, BLOOD 16 mg/dL (7-18)
[2025-01-28] MEDS: IV FAT EMULSIONS 20% 250 ML IV SCH (09:24)
[2025-01-28] MEDS: TPN BAG #5 IV SCH (14:17)
[2025-01-29] VITALS (8 sets, daily range): BP systolic 108–137; BP diastolic 50–74; TEMP 97.6–97.8; O2SAT 93–100
[2025-01-29] MEDS: TPN BAG #6 IV SCH (02:59)
[2025-01-29 06:45] LABS: PLATELET COUNT (AUTO) 206 K/uL (152-348); RED BLOOD CELL COUNT(AUTO) 3.49 MIL/uL (4.06-5.63); RED CELL DISTRIBUTION WIDTH 14.0 % (12.1-16.2); WHITE BLOOD COUNT (AUTO) 5.4 K/uL (3.6-10.2)
[2025-01-29 07:02] LABS: CREATININE 0.3 mg/dL (0.6-1.3); SODIUM SERUM 138 mmol/L (136-145); UREA NITROGEN, BLOOD 15 mg/dL (7-18)
[2025-01-29] MEDS: POTASSIUM PHOSPHATE MM 15 MMOL in IV NORMAL SALINE 250 ML IV ONE (09:33)
[2025-01-29] MEDS: TPN BAG #7 IV SCH (14:19)
[2025-01-30] VITALS (10 sets, daily range): BP systolic 105–129; BP diastolic 54–69; TEMP 97.5–97.8; O2SAT 97–100
[2025-01-30] MEDS: TPN BAG #8 IV SCH (03:36)
[2025-01-30 06:46] LABS: CREATININE 0.4 mg/dL (0.6-1.3); SODIUM SERUM 141 mmol/L (136-145); UREA NITROGEN, BLOOD 16 mg/dL (7-18)
[2025-01-30] MEDS: IV FAT EMULSIONS 20% 250 ML IV SCH (11:43)
[2025-01-30] MEDS: TPN IV SCH (14:17)
[2025-01-31] VITALS (13 sets, daily range): BP systolic 101–106; BP diastolic 53–64; TEMP 97.3–97.7; O2SAT 98–100
[2025-01-31] MEDS: TPN IV SCH (03:00)
[2025-01-31 07:15] LABS: CREATININE 0.3 mg/dL (0.6-1.3); SODIUM SERUM 140 mmol/L (136-145); UREA NITROGEN, BLOOD 16 mg/dL (7-18)
[2025-01-31] MEDS: TPN/PPN PER PHARMACY IV PRN (09:15)
[2025-02-01] VITALS (7 sets, daily range): BP systolic 98–114; BP diastolic 47–62; TEMP 97.8; O2SAT 97–99
[2025-02-01 06:33] LABS: PLATELET COUNT (AUTO) 243 K/uL (152-348); RED BLOOD CELL COUNT(AUTO) 3.39 MIL/uL (4.06-5.63); RED CELL DISTRIBUTION WIDTH 14.3 % (12.1-16.2); WHITE BLOOD COUNT (AUTO) 5.6 K/uL (3.6-10.2)
[2025-02-01 06:49] LABS: CREATININE 0.6 mg/dL (0.6-1.3); SODIUM SERUM 143 mmol/L (136-145); UREA NITROGEN, BLOOD 22 mg/dL (7-18)
== END 2025-02-01 17:20 | disposition home health service (06) | DRG 329 ==
LOC: ER 19:35 → TELE3 01-17 01:17 → MEDSURG3 01-17 12:01 → TELE3 01-24 02:42 → MEDSURG3 01-25 14:46
PROVIDERS: ATTEND Internal Medicine
PROC: 0D9670Z Drainage of Stomach with Drainage Device, Via Natural or Artificial Opening (ICD-10-PCS; 2025-01-18)
PROC: 05HC33Z Insertion of Infusion Device into Left Basilic Vein, Percutaneous Approach (ICD-10-PCS; 2025-01-21)
PROC: 0DQ80ZZ Repair Small Intestine, Open Approach (ICD-10-PCS; 2025-01-23)
PROC: 0DN80ZZ Release Small Intestine, Open Approach (ICD-10-PCS; principal; 2025-01-23 22:00)
PROC: 05HY33Z Insertion of Infusion Device into Upper Vein, Percutaneous Approach (ICD-10-PCS; 2025-01-25)
DX: K56.50 Intestinal adhesions [bands], unspecified as to partial versus complete obstruction (principal); G92.8 Other toxic encephalopathy; D68.59 Other primary thrombophilia; I69.354 Hemiplegia and hemiparesis following cerebral infarction affecting left non-dominant side; E44.0 Moderate protein-calorie malnutrition; I50.32 Chronic diastolic (congestive) heart failure; R62.7 Adult failure to thrive; Z53.20 Procedure and treatment not carried out because of patient's decision for unspecified reasons; N40.0 Benign prostatic hyperplasia without lower urinary tract symptoms; E87.6 Hypokalemia; E78.5 Hyperlipidemia, unspecified; Z68.21 Body mass index [BMI] 21.0-21.9, adult; R13.10 Dysphagia, unspecified; I48.91 Unspecified atrial fibrillation; I11.0 Hypertensive heart disease with heart failure; F01.50 Vascular dementia, unspecified severity, without behavioral disturbance, psychotic disturbance, mood disturbance, and anxiety; I67.2 Cerebral atherosclerosis; E88.09 Other disorders of plasma-protein metabolism, not elsewhere classified; Z79.82 Long term (current) use of aspirin; Z79.899 Other long term (current) drug therapy; K57.30 Diverticulosis of large intestine without perforation or abscess without bleeding; M89.8X9 Other specified disorders of bone, unspecified site; Z53.31 Laparoscopic surgical procedure converted to open procedure; Z66 Do not resuscitate
CPT/HCPCS: 36415; 70450; 71045; 74018; 74250; 83605; 83690; 83735; 84100; 84132; 84153; 84443; 84478; 85025; 85610; 87040; 87086; 93005; 93307; 94640; 94664; 94760; A4606; A4663; A6213; G0378; J0330; J0690; J0696; J1815; J2003; J2405; J2470; J2543; J3010; J3475; J3480; J3490; J3590; J7040; J7042; J7050; J7131; J8499; Q9963

== ENCOUNTER 2025-02-02 03:32 | Inpatient (IN) | payer MEDICARE, OTHER ==
[~2025-02-02] VITALS: Ht 165.1 cm; Wt 57.2 kg
[2025-02-02] VITALS (73 sets, daily range): BP systolic 85–130; BP diastolic 36–71; TEMP 97.8–98.8; O2SAT 86–99
[~2025-02-02 03:32] MED LIST changes: -AMOX1TAB16 PO; -CHOL2000 PO; +LOSA25TA27 PO; -PANT40SU2 PO; -POLY17PO4 PO
[2025-02-02] MEDS ORDERED: DIGOXIN 500 MCG/2 ML AMP ONE (03:47)
[2025-02-02] MEDS ORDERED: AMIODARONE HCL 150 MG/3 ML VIAL IV ONE ×2 (03:47→04:01)
[2025-02-02] MEDS: DIGOXIN 500 MCG/2 ML AMP IV ONE (04:13)
[2025-02-02] MEDS: AMIODARONE HCL IV 150 MG in IV DEXTROSE 5% 100 ML IV ONE (04:14)
[2025-02-02] MEDS ORDERED: ONDANSETRON 4 MG/2 ML VIAL ONE (04:14)
[2025-02-02] MEDS ORDERED: MORPHINE SULFATE 2 MG/1 ML DISP.SYRIN ONE (04:15)
[2025-02-02] MEDS: MORPHINE SULFATE 2 MG/1 ML DISP.SYRIN IV ONE ×2 (04:22→04:36)
[2025-02-02] MEDS: ONDANSETRON 4 MG/2 ML VIAL IV ONE ×2 (04:23→04:49)
[2025-02-02] MEDS: AMIODARONE HCL IV 450 MG in IV DEXTROSE 5% 250 ML IV ONE (04:24)
[2025-02-02 04:34] LABS: PLATELET COUNT (AUTO) 307 K/uL (152-348); RED BLOOD CELL COUNT(AUTO) 3.97 MIL/uL (4.06-5.63); RED CELL DISTRIBUTION WIDTH 14.2 % (12.1-16.2); WHITE BLOOD COUNT (AUTO) 6.8 K/uL (3.6-10.2)
[2025-02-02 04:42] LABS: CREATININE 0.7 mg/dL (0.6-1.3); SODIUM SERUM 137 mmol/L (136-145); UREA NITROGEN, BLOOD 30 mg/dL (7-18)
[2025-02-02] MEDS ORDERED: PIPERACILLIN/TAZOBACTAM/D5W 50 ML IV ONE (04:45)
[2025-02-02 04:46] LABS: ABG BASE EXCESS -1.7 mmol/L (-2.0-3.0); ABG HCO3 23.2 mmol/L (21.0-28.0); ABG PCO2 40.1 mmHg (35.0-48.0); ABG PH 7.380 (7.350-7.450); ABG PO2 63.5 mmHg (83.0-108.0); ABG SITE RIGHT RADIAL; ABG TOTAL HEMOGLOBIN 13.1 G/dL (13.5-17.5); AaDO2 92.0 mmHg; CPAP,BG 7 cmH20; FIO2 100.0 %; SET RATE, BG 20.0
[2025-02-02 04:47] LABS: ASPARTATE AMINOTRANSFERASE 59 U/L (15-37); TOTAL PROTEIN, SERUM 6.8 g/dL (6.4-8.2)
[2025-02-02] MEDS: IV NORMAL SALINE 500 ML BAG IV ONE (04:47)
[2025-02-02] MEDS: PIPERACILLIN SODIUM/TAZOBACTAM 3.375 G in IV DEXTROSE 5% 50 ML IV ONE (04:49)
[2025-02-02 04:57] LABS: LACTIC ACID 2.2 mmol/L (0.4-2.0)
[2025-02-02] MEDS ORDERED: NOREPINEPHRINE BITARTRATE 32 MG in IV NORMAL SALINE 218 ML IV ONE (05:00)
[2025-02-02] MEDS ORDERED: NOREPINEPHRINE 8MG/NS 250ML 250 ML IV ONE ×2 (05:19→10:55)
[2025-02-02] MEDS: NOREPINEPHRINE 8MG/NS 250ML 250 ML IV ONE (05:30)
[2025-02-02] MEDS: MAGNESIUM SULFATE/D5W 100 ML IV ONE (05:57)
[2025-02-02] MEDS ORDERED: IV NS 1000 ML 1,000 ML IV PRN (06:30)
[2025-02-02] MEDS ORDERED: ONDANSETRON 4 MG/2 ML VIAL IV PRN (06:30)
[2025-02-02] MEDS ORDERED: ACETAMINOPHEN 325 MG TABLET PO PRN (06:30)
[2025-02-02] MEDS ORDERED: MAGNESIUM HYDROXIDE 30 ML LIQUID UDC PO PRN (06:30)
[2025-02-02] MEDS ORDERED: DOSING PER PHARMACY-ENOXAPARIN XX PRN ×2 (07:15→11:00)
[2025-02-02] MEDS ORDERED: ENOXAPARIN SODIUM 40 MG/0.4 ML DISP.SYRIN SQ SCH (09:00)
[2025-02-02] MEDS ORDERED: PANTOPRAZOLE SODIUM 40 MG VIAL ONE (09:27)
[2025-02-02] MEDS ORDERED: ENOXAPARIN SODIUM 60 MG/0.6 ML DISP.SYRIN SQ ONE (09:28)
[2025-02-02] MEDS: PANTOPRAZOLE SODIUM 40 MG VIAL IV SCH (09:30)
[2025-02-02] MEDS: ENOXAPARIN SODIUM 60 MG/0.6 ML DISP.SYRIN SQ SCH (09:31)
[2025-02-02] MEDS: IV NS 1000 ML 1,000 ML IV PRN (09:33)
[2025-02-02] MEDS: NOREPINEPHRINE 8MG/NS 250ML 250 ML IV PRN (10:57)
[2025-02-02] MEDS: PIPERACILLIN SODIUM/TAZOBACTAM 3.375 G in IV DEXTROSE 5% 100 ML IV SCH (12:50)
[2025-02-02] MEDS ORDERED: IV NORMAL SALINE 250 ML IV ONE (13:17)
[2025-02-02] MEDS ORDERED: SWABABLE VALVE TRANSFER SET EA MC ONE (13:18)
[2025-02-02] MEDS ORDERED: IOHEXOL 350 100 ML INFUS..BTL ONE (13:18)
[2025-02-02] MEDS ORDERED: LEVALBUTEROL HCL NEB 0.63 MG/3 ML NEBU ONE (13:35)
[2025-02-02] MEDS ORDERED: IPRATROPIUM BROMIDE 0.5 MG/2.5 ML NEBU ONE (13:35)
[2025-02-02] MEDS: LEVALBUTEROL HCL NEB 0.63 MG/3 ML NEBU NEB SCH (13:43)
[2025-02-02] MEDS: IPRATROPIUM BROMIDE 0.5 MG/2.5 ML NEBU NEB SCH (13:43)
[2025-02-02] MEDS ORDERED: ACETYLCYSTEINE 20% 800 MG/4 ML VIAL ONE (13:45)
[2025-02-02] MEDS: ACETYLCYSTEINE 20% 800 MG/4 ML VIAL NEB SCH (13:46)
[2025-02-02] MEDS ORDERED: PIPERACILLIN SODIUM/TAZOBACTAM 3.375 G in IV DEXTROSE 5% 50 ML IV SCH (14:00)
[2025-02-02] MEDS: MORPHINE SULFATE 2 MG/1 ML DISP.SYRIN IV PRN (20:04)
[2025-02-03] VITALS (103 sets, daily range): BP systolic 80–145; BP diastolic 28–92; TEMP 97.7–98.8; O2SAT 86–100
[2025-02-03 05:12] LABS: PLATELET COUNT (AUTO) 232 K/uL (152-348); RED BLOOD CELL COUNT(AUTO) 3.34 MIL/uL (4.06-5.63); RED CELL DISTRIBUTION WIDTH 14.3 % (12.1-16.2); WHITE BLOOD COUNT (AUTO) 12.5 K/uL (3.6-10.2)
[2025-02-03 05:33] LABS: ASPARTATE AMINOTRANSFERASE 23 U/L (15-37); CREATININE 0.8 mg/dL (0.6-1.3); SODIUM SERUM 143 mmol/L (136-145); TOTAL PROTEIN, SERUM 5.8 g/dL (6.4-8.2); UREA NITROGEN, BLOOD 28 mg/dL (7-18)
[2025-02-03 05:35] LABS: LACTIC ACID 2.1 mmol/L (0.4-2.0)
[2025-02-03] MEDS: DIGOXIN 125 MCG TABLET PO SCH (08:45)
[2025-02-03] MEDS: MAGNESIUM SULFATE/D5W 100 ML IV SCH (09:56)
[2025-02-03] MEDS: SODIUM PHOSPHATE MM 15 MMOL in IV NORMAL SALINE 250 ML IV ONE (16:23)
[2025-02-03] MEDS: ATORVASTATIN 10 MG TABLET PO SCH (20:50)
[2025-02-04] VITALS (72 sets, daily range): BP systolic 107–163; BP diastolic 47–115; TEMP 97.5–98; O2SAT 94–100
[2025-02-04 05:05] LABS: PLATELET COUNT (AUTO) 193 K/uL (152-348); RED BLOOD CELL COUNT(AUTO) 3.17 MIL/uL (4.06-5.63); RED CELL DISTRIBUTION WIDTH 14.5 % (12.1-16.2); WHITE BLOOD COUNT (AUTO) 8.6 K/uL (3.6-10.2)
[2025-02-04 05:33] LABS: CREATININE 0.4 mg/dL (0.6-1.3); SODIUM SERUM 141 mmol/L (136-145); UREA NITROGEN, BLOOD 13 mg/dL (7-18)
[2025-02-04] MEDS: POTASSIUM CHLORIDE 50 ML IV SCH (07:00)
[2025-02-04] MEDS: GUAIFENESIN LA 600 MG TABLET.SA PO SCH (11:40)
[2025-02-04] MEDS: SODIUM PHOSPHATE MM 15 MMOL in IV NORMAL SALINE 250 ML IV ONE (14:15)
[2025-02-04 19:07] LABS: ADENOVIRUS Not Detected (Not Detected); CORONAVIRUS 229E Not Detected (Not Detected); CORONAVIRUS HKU1 Not Detected (Not Detected); CORONAVIRUS NL63 Not Detected (Not Detected); CORONAVIRUS OC43 Not Detected (Not Detected); NP BORDETELLA PERTUSIS Not Detected (Not Detected); NP CHLAMYDOPHILA PNEUMONIAE Not Detected (Not Detected); NP HUMAN METAPNEUMOVIRUS Not Detected (Not Detected); NP HUMAN RHINO/ENTERO VIRUS Not Detected (Not Detected); NP INFLUENZA A Not Detected (Not Detected); NP INFLUENZA A/H1 Not Detected (Not Detected); NP INFLUENZA A/H1-2009 Not Detected (Not Detected); NP INFLUENZA A/H3 Not Detected (Not Detected); NP INFLUENZA B Not Detected (Not Detected); NP MYCOPLASMA PNEUMONIAE Not Detected (Not Detected); NP PARAINFLUENZA 1 Not Detected (Not Detected); NP PARAINFLUENZA 2 Not Detected (Not Detected); NP PARAINFLUENZA 3 Not Detected (Not Detected); NP PARAINFLUENZA 4 Not Detected (Not Detected); NP RESPIRATORY SYNCYTIAL VIRUS Not Detected (Not Detected)
[2025-02-04 23:45] LABS: CREATININE 0.4 mg/dL (0.6-1.3); SODIUM SERUM 140 mmol/L (136-145); UREA NITROGEN, BLOOD 11 mg/dL (7-18)
[2025-02-05] VITALS (32 sets, daily range): BP systolic 114–163; BP diastolic 60–139; TEMP 97.5–98.1; O2SAT 93–100
[2025-02-05] MEDS: MAGNESIUM SULFATE/D5W 100 ML IV SCH (00:28)
[2025-02-05] MEDS: POTASSIUM CHLORIDE 50 ML IV ONE (00:28)
[2025-02-05 05:45] LABS: PLATELET COUNT (AUTO) 171 K/uL (152-348); RED BLOOD CELL COUNT(AUTO) 3.04 MIL/uL (4.06-5.63); RED CELL DISTRIBUTION WIDTH 14.5 % (12.1-16.2); WHITE BLOOD COUNT (AUTO) 8.1 K/uL (3.6-10.2)
[2025-02-05 05:54] LABS: CREATININE 0.4 mg/dL (0.6-1.3); SODIUM SERUM 141 mmol/L (136-145); UREA NITROGEN, BLOOD 10 mg/dL (7-18)
[2025-02-05] MEDS: MIRALAX 17 GM POWD.PACK PO SCH (08:11)
[2025-02-05] MEDS: POTASSIUM PHOSPHATE MM 15 MMOL in IV NORMAL SALINE 250 ML IV ONE (08:12)
[2025-02-05] MEDS: CARVEDILOL 6.25 MG TABLET PO SCH (08:13)
[2025-02-05] MEDS ORDERED: ENOXAPARIN SODIUM 40 MG/0.4 ML DISP.SYRIN SQ SCH (09:00)
[2025-02-05 22:06] LABS: *BILIRUBIN,URIN NEGATIVE (NEGATIVE); *BLOOD, URINE 3+ (NEGATIVE); *CLARITY,URINE CLEAR (CLEAR); *COLOR,URINE YELLOW (YELLOW); *KETONES,URINE TRACE (NEGATIVE); *PROTEIN,URINE 2+ (NEGATIVE); *UROBILINOGEN,URINE 1.0 E.U./dl (NORMAL); LEUKOCYTE ESTERASE ,URINE NEGATIVE (NEGATIVE); NITRITE, URINE NEGATIVE (NEGATIVE); UGLUCOSE NEGATIVE (NEGATIVE)
[2025-02-05 22:37] LABS: SQUAMOUS EPITHELIAL CELL,UR NONE SEEN /HPF (NONE SEEN)
[2025-02-06] VITALS (29 sets, daily range): BP systolic 93–158; BP diastolic 53–121; TEMP 97.3–98.2; O2SAT 94–100
[2025-02-06 04:51] LABS: PLATELET COUNT (AUTO) 178 K/uL (152-348); RED BLOOD CELL COUNT(AUTO) 3.26 MIL/uL (4.06-5.63); RED CELL DISTRIBUTION WIDTH 14.3 % (12.1-16.2); WHITE BLOOD COUNT (AUTO) 6.5 K/uL (3.6-10.2)
[2025-02-06 05:01] LABS: CREATININE 0.5 mg/dL (0.6-1.3); SODIUM SERUM 138 mmol/L (136-145); UREA NITROGEN, BLOOD 10 mg/dL (7-18)
[2025-02-06] MEDS ORDERED: ENOXAPARIN SODIUM 60 MG/0.6 ML DISP.SYRIN SQ SCH (08:00)
[2025-02-06] MEDS: MAGNESIUM SULFATE/D5W 100 ML IV SCH (08:20)
[2025-02-06] MEDS: POTASSIUM PHOSPHATE MM 15 MMOL in IV NORMAL SALINE 250 ML IV ONE (08:21)
[2025-02-06] MEDS: ENOXAPARIN SODIUM 40 MG/0.4 ML DISP.SYRIN SQ SCH (08:22)
[2025-02-06] MEDS: CEFEPIME HCL 2 GM in IV DEXTROSE 5% 100 ML IV SCH (21:31)
[2025-02-07] VITALS (16 sets, daily range): BP systolic 119–136; BP diastolic 52–85; TEMP 97.6–98.3; O2SAT 94–100
[2025-02-07] MEDS: PANTOPRAZOLE SODIUM 40 MG TABLET.DR PO SCH (06:08)
[2025-02-07 06:59] LABS: PLATELET COUNT (AUTO) 171 K/uL (152-348); RED BLOOD CELL COUNT(AUTO) 3.13 MIL/uL (4.06-5.63); RED CELL DISTRIBUTION WIDTH 14.8 % (12.1-16.2); WHITE BLOOD COUNT (AUTO) 4.9 K/uL (3.6-10.2)
[2025-02-07 07:12] LABS: CREATININE 0.3 mg/dL (0.6-1.3); SODIUM SERUM 138 mmol/L (136-145); UREA NITROGEN, BLOOD 8 mg/dL (7-18)
[2025-02-07] MEDS: POTASSIUM CHLORIDE 20 MEQ POWDER PACKET PO ONE (10:42)
[2025-02-07] MEDS: POTASSIUM CHLORIDE 50 ML IV SCH ×2 (13:13→17:21)
[2025-02-07] MEDS ORDERED: POTASSIUM CHLORIDE 20 MEQ POWDER PACKET PO ONE (15:00)
[2025-02-08] VITALS (16 sets, daily range): BP systolic 110–134; BP diastolic 56–68; TEMP 97.6–98.2; O2SAT 94–99
[2025-02-08 07:32] LABS: CREATININE 0.4 mg/dL (0.6-1.3); SODIUM SERUM 137 mmol/L (136-145); UREA NITROGEN, BLOOD 9 mg/dL (7-18)
[2025-02-09] VITALS (13 sets, daily range): BP systolic 118–149; BP diastolic 64–75; TEMP 97.3–97.8; O2SAT 95–99
[2025-02-09 17:07] LABS: PLATELET COUNT (AUTO) 212 K/uL (152-348); RED BLOOD CELL COUNT(AUTO) 3.19 MIL/uL (4.06-5.63); RED CELL DISTRIBUTION WIDTH 14.4 % (12.1-16.2); WHITE BLOOD COUNT (AUTO) 6.1 K/uL (3.6-10.2)
[2025-02-09 17:17] LABS: CREATININE 0.5 mg/dL (0.6-1.3); SODIUM SERUM 141 mmol/L (136-145); UREA NITROGEN, BLOOD 16 mg/dL (7-18)
[2025-02-10] VITALS (8 sets, daily range): BP systolic 118–119; BP diastolic 63–68; TEMP 98.1; O2SAT 95–99
[2025-02-10 06:22] LABS: PLATELET COUNT (AUTO) 237 K/uL (152-348); RED BLOOD CELL COUNT(AUTO) 3.48 MIL/uL (4.06-5.63); RED CELL DISTRIBUTION WIDTH 14.9 % (12.1-16.2); WHITE BLOOD COUNT (AUTO) 6.6 K/uL (3.6-10.2)
[2025-02-10 07:06] LABS: CREATININE 0.6 mg/dL (0.6-1.3); SODIUM SERUM 138 mmol/L (136-145); UREA NITROGEN, BLOOD 14 mg/dL (7-18)
[2025-02-10] MEDS ORDERED: DIGO125T5 PO (12:36)
[2025-02-10] MEDS ORDERED: LEVO500T90 PO (12:36)
[2025-02-10] MEDS ORDERED: CARV6.252 PO (12:36)
== END 2025-02-10 14:25 | disposition home health service (06) | DRG 871 ==
LOC: ER 03:36 → ICU IN 05:30 → CCU 17:38 → TELE3 02-06 17:31 → MEDSURG3 02-08 12:14
PROVIDERS: ADMIT Nurse Practitioner Family; ATTEND Nurse Practitioner Family
PROC: 06HY33Z Insertion of Infusion Device into Lower Vein, Percutaneous Approach (ICD-10-PCS; principal; 2025-02-02)
PROC: 5A09357 Assistance with Respiratory Ventilation, Less than 24 Consecutive Hours, Continuous Positive Airway Pressure (ICD-10-PCS; 2025-02-02)
PROC: 05HB33Z Insertion of Infusion Device into Right Basilic Vein, Percutaneous Approach (ICD-10-PCS; 2025-02-08)
DX: A41.9 Sepsis, unspecified organism (principal); E43 Unspecified severe protein-calorie malnutrition; I21.A1 Myocardial infarction type 2; J15.69 Pneumonia due to other Gram-negative bacteria; J96.01 Acute respiratory failure with hypoxia; J69.0 Pneumonitis due to inhalation of food and vomit; R65.21 Severe sepsis with septic shock; I50.1 Left ventricular failure, unspecified; I48.20 Chronic atrial fibrillation, unspecified; I69.354 Hemiplegia and hemiparesis following cerebral infarction affecting left non-dominant side; J44.0 Chronic obstructive pulmonary disease with (acute) lower respiratory infection; E87.20 Acidosis, unspecified; D68.59 Other primary thrombophilia; I50.32 Chronic diastolic (congestive) heart failure; I11.0 Hypertensive heart disease with heart failure; I48.91 Unspecified atrial fibrillation; N40.0 Benign prostatic hyperplasia without lower urinary tract symptoms; E78.5 Hyperlipidemia, unspecified; J43.2 Centrilobular emphysema; E87.6 Hypokalemia; R13.10 Dysphagia, unspecified; E86.0 Dehydration; E83.42 Hypomagnesemia; E88.09 Other disorders of plasma-protein metabolism, not elsewhere classified; Z79.899 Other long term (current) drug therapy; R74.01 Elevation of levels of liver transaminase levels; F03.90 Unspecified dementia, unspecified severity, without behavioral disturbance, psychotic disturbance, mood disturbance, and anxiety
CPT/HCPCS: 36415; 36600; 70450; 71045; 71250; 71275; 74230; 82803; 83605; 83735; 84100; 84484; 85025; 85730; 87040; 87070; 87077; 93005; 93307; 94640; 94660; 94664; 94760; 99082-TC; A4606; A4663; G0378; J0282; J0692; J1160; J1650; J2270; J2405; J2470; J2543; J3475; J3480; J3490; J3590; J7040; J7060; J7614; Q9967